=== PATIENT | female | born 1975 | race Hispanic/Latino ===

== ENCOUNTER 2021-03-29 11:00 | Inpatient (IN) | payer OTHER ==
[~2021-03-29] VITALS: Ht 160 cm; Wt 88.0 kg
[2021-03-29 12:40] LABS: BASOPHILS % (AUTO) 0.4 % (0.0-5.0); HEMATOCRIT 27.9 % (36-48); LYMPHOCYTES % (AUTO) 26.7 % (21.0-51.0); MEAN CORPUSCULAR HEMOGLOBIN 24.8 pg (27.0-33.0); MEAN CORPUSCULAR HGB CONC 29.4 g/dL (32.0-36.0); MEAN CORPUSCULAR VOLUME 84.3 fL (79-99); NEUTROPHILS % (AUTO) 63.3 % (40.0-77.0); PLATELET COUNT (AUTO) 265 K/uL (130-400); RED BLOOD CELL COUNT(AUTO) 3.31 MIL/uL (4.00-5.50); RED CELL DISTRIBUTION WIDTH 20.7 % (11.0-15.5); WHITE BLOOD COUNT (AUTO) 4.8 K/uL (4.8-10.8)
[2021-03-29 12:59] VITALS: BP 131/67
[2021-03-29] MEDS ORDERED: IRON1CAP30 PO (13:03)
[2021-03-30] VITALS (23 sets, daily range): BP systolic 97–141; BP diastolic 48–77
[2021-03-30] MEDS: CEFAZOLIN SODIUM 1 GM VIAL IVP SCH ×2 (05:00→08:58)
[2021-03-30] MEDS ORDERED: LACTATED RINGERS 1000ML 1,000 ML IV ONE (06:11)
[2021-03-30] MEDS ORDERED: ROCURONIUM 10MG/1ML SYR 10 MG/ML ML ONE ×2 (08:19→09:12)
[2021-03-30] MEDS ORDERED: LIDOCAINE PF 100MG/5ML (2%) SYRINGE 5ML ONE (08:19)
[2021-03-30] MEDS ORDERED: PROPOFOL 10 MG/ML 20ML VIAL IV ONE (08:19)
[2021-03-30] MEDS ORDERED: MIDAZOLAM HCL 1 MG/ML 2ML VIAL ONE (08:19)
[2021-03-30] MEDS ORDERED: ONDANSETRON 4MG INJ ONE (08:19)
[2021-03-30] MEDS ORDERED: FENTANYL CITRATE PF 50 MCG/1 ML 2ML VIAL ONE ×2 (08:20→10:17)
[2021-03-30] MEDS ORDERED: ACETAMINOPHEN 500 MG TABLET ONE (08:22)
[2021-03-30] MEDS ORDERED: DEXMEDETOMIDINE HCL 200 MCG/2 ML VIAL IV ONE (08:23)
[2021-03-30] MEDS ORDERED: MAGNESIUM SULFATE 1 GM/2 ML VIAL ONE (08:24)
[2021-03-30] MEDS ORDERED: KETAMINE 50MG/ML SYRINGE 50 MG/ML DISP.SYRIN IV ONE (08:24)
[2021-03-30] MEDS ORDERED: EPHEDRINE SULFATE 50 MG/ML AMPULE ONE (09:50)
[2021-03-30] MEDS ORDERED: MEPERIDINE-PF 25 MG/ML SYG ONE (10:26)
[2021-03-30] MEDS ORDERED: GLYCOPYRROLATE 1 MG/5 ML SYRINGE ONE (10:57)
[2021-03-30] MEDS ORDERED: NEOSTIGMINE 5MG/5ML SYR IV ONE (10:57)
[2021-03-30] MEDS: DEXTROSE 5 %-0.45 % NACL 1,000 ML IV PRN ×2 (12:21→20:18)
[2021-03-30] MEDS: PROMETHAZINE HCL 25 MG/ML 1ML AMPULE IM PRN ×2 (12:21→18:39)
[2021-03-30] MEDS: MEPERIDINE-PF 75 MG/ML SYG IM PRN ×2 (12:22→18:40)
[2021-03-30] MEDS ORDERED: BISACODYL 10 MG SUPP.RECT RC PRN (12:30)
[2021-03-30] MEDS ORDERED: ONDANSETRON 4MG INJ IVP PRN (12:30)
[2021-03-30] MEDS ORDERED: IBUPROFEN 600 MG TABLET PO PRN (12:30)
[2021-03-30] MEDS ORDERED: PROMETHAZINE HCL 25 MG/ML 1ML AMPULE IM PRN (12:30)
[2021-03-30] MEDS ORDERED: ACETAMINOPHEN WITH CODEINE 1 TAB TAB PO PRN (12:30)
[2021-03-30] MEDS: SIMETHICONE 80 MG TAB.CHEW PO PRN (21:09)
[2021-03-30] MEDS: DOCUSATE SODIUM 100 MG CAP PO PRN (21:09)
[2021-03-31] MEDS ORDERED: HYDROCODONE/ACETAMINOPHEN 5/325 MG TAB PO PRN (01:30)
[2021-03-31 03:19] VITALS: BP 120/63
[2021-03-31] MEDS: CEFAZOLIN SODIUM 1 GM VIAL IVP SCH (05:00)
[2021-03-31] MEDS: DEXTROSE 5 %-0.45 % NACL 1,000 ML IV PRN (05:24)
[2021-03-31 05:55] LABS: HEMATOCRIT 28.9 % (36-48); MEAN CORPUSCULAR HEMOGLOBIN 25.7 pg (27.0-33.0); MEAN CORPUSCULAR HGB CONC 30.1 g/dL (32.0-36.0); MEAN CORPUSCULAR VOLUME 85.3 fL (79-99); RED BLOOD CELL COUNT(AUTO) 3.39 MIL/uL (4.00-5.50); RED CELL DISTRIBUTION WIDTH 20.9 % (11.0-15.5); WHITE BLOOD COUNT (AUTO) 12.8 K/uL (4.8-10.8)
[2021-03-31 07:07] VITALS: BP 110/58
[2021-03-31] MEDS: IBUPROFEN 800 MG TAB PO PRN ×2 (08:39→17:56)
[2021-03-31] MEDS: DOCUSATE SODIUM 100 MG CAP PO PRN ×2 (08:39→21:05)
[2021-03-31] MEDS: SIMETHICONE 80 MG TAB.CHEW PO PRN ×2 (08:39→21:05)
[2021-03-31 11:13] VITALS: BP 122/73
[2021-03-31 16:40] VITALS: BP 115/68
[2021-03-31 19:14] VITALS: BP 127/79
[2021-03-31 23:12] VITALS: BP 122/70
[2021-04-01 03:35] VITALS: BP 111/68
[2021-04-01 07:09] VITALS: BP 121/78
[2021-04-01] MEDS: SIMETHICONE 80 MG TAB.CHEW PO PRN (08:52)
[2021-04-01] MEDS: DOCUSATE SODIUM 100 MG CAP PO PRN (08:52)
[2021-04-01] MEDS: IBUPROFEN 800 MG TAB PO PRN (08:53)
[2021-04-01] MEDS ORDERED: FERR325T22 PO (08:59)
[2021-04-01] MEDS ORDERED: ACET1TAB25 PO (08:59)
== END 2021-04-01 09:20 | disposition home or self-care (01) | DRG 743 ==
LOC: DAHIP 03-30 05:36 → WSH 03-30 12:10
PROVIDERS: ADMIT Obstetrics & Gynecology; ATTEND Obstetrics & Gynecology
PROC: 30233N1 Transfusion of Nonautologous Red Blood Cells into Peripheral Vein, Percutaneous Approach (ICD-10-PCS; 2021-03-30)
PROC: 0UT90ZZ Resection of Uterus, Open Approach (ICD-10-PCS; principal; 2021-03-30 09:02)
PROC: 0UB70ZZ Excision of Bilateral Fallopian Tubes, Open Approach (ICD-10-PCS; 2021-03-30 09:02)
DX: D25.9 Leiomyoma of uterus, unspecified (principal); D50.9 Iron deficiency anemia, unspecified; N92.1 Excessive and frequent menstruation with irregular cycle; Z20.822 Contact with and (suspected) exposure to COVID-19; K66.0 Peritoneal adhesions (postprocedural) (postinfection); E66.9 Obesity, unspecified; Z68.34 Body mass index [BMI] 34.0-34.9, adult; Z98.891 History of uterine scar from previous surgery; Z83.3 Family history of diabetes mellitus; Z82.49 Family history of ischemic heart disease and other diseases of the circulatory system; Z80.6 Family history of leukemia; Z80.8 Family history of malignant neoplasm of other organs or systems
CPT/HCPCS: 36415; 84703; 85025; 85027; 86850; 86900; 86901; 86923; 87635; 88305; 88307; A4344; G0378; J0690; J2001; J2175; J2250; J2405; J2550; J2704; J2710; J3010; J3475; J3490; J7030; J7120; P9016

== ENCOUNTER → 2023-12-01 | Outpatient (CLI) | payer OTHER ==
[~2023-12-01] MED LIST: ACET-2079 PO; FERR325T22 PO; IRON1CAP30 PO
== END | disposition home or self-care (01) ==
LOC: RAH 14:34
PROVIDERS: ATTEND Nurse Practitioner Family
DX: Z13.6 Encounter for screening for cardiovascular disorders (principal)
CPT/HCPCS: 75571